=== PATIENT | female | born 1950 | race Caucasian/White ===

== ENCOUNTER 2018-11-25 16:56 | Inpatient (IN) | payer MEDICARE, MEDICAID ==
[~2018-11-25] VITALS: Ht 157.5 cm; Wt 47.6 kg
[~2018-11-25 16:56] MED LIST: APIX5TAB PO; ASPI-496 PO; CARV25TA12 PO; CLON0.2T PO; CLON0.3T4 PO; DIGO125T PO; DOXY100T PO; FERR324T5 PO; INSU100V5 SQ-INSULIN; LISI-170 PO; LORA-247 PO; METO25TA35 PO; OMEP20TA62 PO; PRED10TA PO; SPIR25TA PO; TIOT18CA INH
[2018-11-25] MEDS ORDERED: SIMV20TA3 PO (17:18)
--- NOTE | 2018-11-25 17:30 | NUR ---
pt JANNYSailaja from [facility] for treatment of NSTEMI diagnosed at that facility, report received from EMS. pt states she has intermittent shortness of breath that is chronic but worse this am. pt also reports transient chest pain that occurred this am, but has since resolved. 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 records indicate pt's troponin 0.08 at 1405. EKG taken on arrival, all monitors in place, pt is NSR on potline monitor with no ectopy. call light in reach. pt wearing oxygen at 3L/min, this is her baseline d/t hx COPD. call light in reach. awaiting MD and orders.
[2018-11-25] MEDS ORDERED: PROMETHAZINE 25 MG/ML, 1ML ONE (17:46)
[2018-11-25] MEDS ORDERED: DICYCLOMINE 10 MG/ML, 2ML ONE (17:46)
[2018-11-25] MEDS ORDERED: ONDANSETRON ODT 4 MG ONE (17:46)
--- NOTE | 2018-11-25 18:15 | NUR ---
REPORT TO TASK FIDE LEYVA.
[2018-11-25 18:31] LABS: BASOPHILS # (AUTO) 0.02 x10^3/uL (0-0.1); BASOPHILS % (AUTO) 0 % (0-1); EOSINOPHILS # (AUTO) 0.12 x10^3/uL (0-0.4); EOSINOPHILS % (AUTO) 1 % (1-7); LYMPHOCYTES # (AUTO) 1.71 x10^3/uL (1-3.4); LYMPHOCYTES % (AUTO) 18 % (22-44); MD NO; MEAN CORPUSCULAR HEMOGLOBIN 27.9 pg (27.0-34.8); MEAN CORPUSCULAR VOLUME 84.6 fL (80-100); MEAN PLATELET VOLUME 9.9 fL (7.4-10.4); MONOCYTES # (AUTO) 0.61 x10^3/uL (0.2-0.8); MONOCYTES % (AUTO) 6 % (2-9); NEUTROPHILS # (AUTO) 7.13 x10^3/uL (1.8-6.8); NEUTROPHILS % (AUTO) 74 % (42-75); PLATELET COUNT 218 x10^3/uL (130-400); RED BLOOD COUNT 3.92 x10^6/uL (3.82-5.3); RED CELL DISTRIBUTION WIDTH 17.5 % (9.6-15.2)
[2018-11-25 18:34] LABS: ALBUMIN 3.7 g/dL (3.4-5.0); ANION GAP 6 mmol/L (5-15); CALCIUM 9.1 mg/dL (8.5-10.1); CHLORIDE 99 mmol/L (98-107)
--- NOTE | 2018-11-25 18:37 | NUR ---
TASK RN: PT SITTING UP IN [place]ID[place], NAD NOTED. RR WNL; PT SPEAKING IN FULL SENTENCES WO DIFFICULTY. SPO2 >90% ON BASELINE O2, 3L BY NC. PWD. PT DENIES CP/SOB BP/SPO2/ECG MONITORING IN PLACE. NSR ON MONITOR W/ ST DEPRESSION NOTED. FAMILY PRESENT. DISPO REQUESTED FROM [facility]P
[2018-11-25 18:39] LABS: CREATININE 0.98 mg/dL (0.55-1.02); TROPONIN I 0.078 ng/mL (0.000-0.045)
[2018-11-25] MEDS ORDERED: POTASSIUM CHLORIDE 20 MEQ TAB.ER.PRT ONE (18:48)
--- NOTE | 2018-11-25 18:57 | NUR ---
REPORT RECEIVED FROM FIDE LEYVA.
--- NOTE | 2018-11-25 19:00 | NUR ---
EVENS FIERRO AT BEDSIDE TO ADMIT PT. INFORMED THAT PER [facility] RECORDS, PT RECEIVED LOVENOX 80 MG AT 1400 TODAY. INFORMED PT ALSO TAKES ELIQUIS AT HOME. PT CONVERSING WITH EVENS FIERRO, ALL MONITORS IN PLACE, CECILIA AT THIS TIME.
[2018-11-25] MEDS ORDERED: ALBUTEROL/IPRATROPIUM 2.5MG/0.5MG, 3 ML ONE ×2 (19:16→19:35)
--- NOTE | 2018-11-25 20:06 | NUR ---
REPORT GIVEN TO FIDE TOPETE, PT TRANSPORTED TO ROOM 522-1, PT A&O, RESPS EVEN AND UNLABORED, CRISN AT TRANSPORT. FAMILY WITH PT AT TRANSPORT.
[2018-11-25] MEDS ORDERED: NITROGLYCERIN OINT 2%, 1GM TP SCH (20:30)
[2018-11-25] MEDS ORDERED: NITROGLYCERIN 0.4 MG/SPRAY SL PRN (20:30)
[2018-11-25] MEDS ORDERED: ONDANSETRON 2MG/ML, 2ML IVPush PRN (20:30)
[2018-11-25 20:31] VITALS: BP 159/65
[2018-11-25] MEDS ORDERED: HEPARIN 5,000 UNITS/ML, 1ML IV ONE (21:00)
[2018-11-25] MEDS ORDERED: HEPARIN 25,000 UNITS/500ML PMX 500 ML IV PRN (21:00)
[2018-11-25] MEDS ORDERED: HEPARIN 5,000 UNITS/ML, 1ML IV PRN (21:00)
[2018-11-25] MEDS ORDERED: IPRATROPIUM 0.5 MG/2.5 ML INHA NPPB SCH (21:00)
[2018-11-25 21:38] LABS: TROPONIN I 0.078 ng/mL (0.000-0.045)
[2018-11-25 21:47] LABS: HEMOGLOBIN A1C 9.1 % (4.2-6.3)
[2018-11-25] MEDS ORDERED: ALBUTEROL/IPRATROPIUM 2.5MG/0.5MG, 3 ML NPPB PRN (22:00)
[2018-11-25] MEDS: LISINOPRIL 20 MG TABLET PO SCH (22:37)
[2018-11-25] MEDS: FERROUS SULFATE 325 MG TABLET PO SCH (22:37)
[2018-11-25] MEDS: ATORVASTATIN 80 MG TABLET PO SCH (22:38)
[2018-11-25] MEDS: CARVEDILOL 25 MG TABLET PO SCH (22:38)
[2018-11-25] MEDS: ALBUTEROL/IPRATROPIUM 2.5MG/0.5MG, 3 ML NPPB SCH (23:00)
[2018-11-25] MEDS ORDERED: NITROGLYCERIN OINT 2%, 1GM TP PRN (23:30)
[2018-11-26 01:36] LABS: ANION GAP 7 mmol/L (5-15); CALCIUM 8.6 mg/dL (8.5-10.1); CHLORIDE 101 mmol/L (98-107); CHOLESTEROL, TOTAL 172 mg/dL (140-239); TRIGLYCERIDES 329 mg/dL (50-200); VLDL CHOLESTEROL 66 mg/dL (0-25)
[2018-11-26 01:37] LABS: CHOL/HDL RATIO 3.4; HDL CHOL % 29 % (28-40); HDL CHOLESTEROL (DIRECT) 50 mg/dL (40-60); LDL CHOLESTEROL,CALCULATED 56 mg/dL (54-169); LDL/HDL RATIO 1.1 (0.5-3.0)
[2018-11-26 01:40] LABS: TROPONIN I 0.088 ng/mL (0.000-0.045)
[2018-11-26 01:45] VITALS: BP 106/61
[2018-11-26] MEDS ORDERED: HEPARIN 25,000 UNITS/500ML PMX 500 ML IV PRN (02:00)
[2018-11-26] MEDS ORDERED: HEPARIN 5,000 UNITS/ML, 1ML IV PRN (02:00)
[2018-11-26] MEDS ORDERED: HEPARIN 5,000 UNITS/ML, 1ML IV ONE (02:00)
[2018-11-26] MEDS: ALBUTEROL/IPRATROPIUM 2.5MG/0.5MG, 3 ML NPPB SCH ×6 (02:00→22:15)
[2018-11-26 06:55] LABS: BASOPHILS # (AUTO) 0.05 x10^3/uL (0-0.1); BASOPHILS % (AUTO) 1 % (0-1); EOSINOPHILS # (AUTO) 0.28 x10^3/uL (0-0.4); EOSINOPHILS % (AUTO) 4 % (1-7); LYMPHOCYTES % (AUTO) 23 % (22-44); MD NO; MEAN CORPUSCULAR HEMOGLOBIN 28.1 pg (27.0-34.8); MEAN CORPUSCULAR HGB CONC 33.7 g/dL (32.4-35.8); MEAN CORPUSCULAR VOLUME 83.4 fL (80-100); MEAN PLATELET VOLUME 10.1 fL (7.4-10.4); MONOCYTES # (AUTO) 0.58 x10^3/uL (0.2-0.8); MONOCYTES % (AUTO) 9 % (2-9); NEUTROPHILS # (AUTO) 4.18 x10^3/uL (1.8-6.8); NEUTROPHILS % (AUTO) 63 % (42-75); PLATELET COUNT 173 x10^3/uL (130-400); RED BLOOD COUNT 3.62 x10^6/uL (3.82-5.3); RED CELL DISTRIBUTION WIDTH 17.8 % (9.6-15.2)
[2018-11-26] MEDS: BUDESONIDE 0.5 MG/2 ML INHA NPPB SCH ×2 (07:20→22:15)
[2018-11-26 07:30] VITALS: BP 125/72
[2018-11-26] MEDS: CARVEDILOL 25 MG TABLET PO SCH ×2 (08:48→18:00)
[2018-11-26] MEDS: DIGOXIN 0.125 MG TABLET PO SCH (08:48)
[2018-11-26] MEDS: SPIRONOLACTONE 25 MG TABLET PO SCH (08:48)
[2018-11-26] MEDS: LISINOPRIL 20 MG TABLET PO SCH ×2 (08:48→19:53)
[2018-11-26] MEDS: FERROUS SULFATE 325 MG TABLET PO SCH ×2 (08:48→19:52)
[2018-11-26] MEDS: ASPIRIN 81 MG TABLET EC PO SCH (08:48)
[2018-11-26] MEDS: LORATADINE 10 MG TABLET PO SCH (08:49)
[2018-11-26] MEDS ORDERED: TEMPLATE NON-FORMULARY MED. (Tiotropium Bromide** (Spiriva**) 18 MCG) INH SCH (09:00)
[2018-11-26] MEDS ORDERED: POTASSIUM CHLORIDE 40 MEQ in SODIUM CHLORIDE 0.9% 500 ML IV ONE (10:00)
[2018-11-26] MEDS: PANTOPROZOLE 40MG TABLET PO SCH (12:00)
[2018-11-26] MEDS: methylPREDNISolone SOD SUCC 125 MG/2 ML IVPush SCH ×2 (12:30→18:02)
[2018-11-26] MEDS: FUROSEMIDE 20 MG TABLET PO SCH (12:30)
[2018-11-26 14:45] VITALS: BP 106/68
[2018-11-26] MEDS: ATORVASTATIN 80 MG TABLET PO SCH (19:52)
[2018-11-26 20:00] VITALS: BP 147/70
[2018-11-27] MEDS: methylPREDNISolone SOD SUCC 125 MG/2 ML IVPush SCH ×4 (00:35→17:17)
[2018-11-27 01:09] VITALS: BP 145/76
[2018-11-27] MEDS: ALBUTEROL/IPRATROPIUM 2.5MG/0.5MG, 3 ML NPPB SCH ×6 (02:13→22:37)
[2018-11-27] MEDS: CARVEDILOL 25 MG TABLET PO SCH ×2 (05:12→17:17)
[2018-11-27] MEDS: PANTOPROZOLE 40MG TABLET PO SCH (05:12)
[2018-11-27 06:47] LABS: ANION GAP 9 mmol/L (5-15); CALCIUM 8.8 mg/dL (8.5-10.1); CHLORIDE 102 mmol/L (98-107); CREATININE 0.92 mg/dL (0.55-1.02)
[2018-11-27] MEDS: BUDESONIDE 0.5 MG/2 ML INHA NPPB SCH ×2 (07:28→18:59)
[2018-11-27] MEDS: ASPIRIN 81 MG TABLET EC PO SCH (08:34)
[2018-11-27] MEDS: FERROUS SULFATE 325 MG TABLET PO SCH ×2 (08:34→20:08)
[2018-11-27] MEDS: DIGOXIN 0.125 MG TABLET PO SCH (08:34)
[2018-11-27] MEDS: FUROSEMIDE 20 MG TABLET PO SCH (08:35)
[2018-11-27] MEDS: SPIRONOLACTONE 25 MG TABLET PO SCH (08:35)
[2018-11-27] MEDS: LISINOPRIL 20 MG TABLET PO SCH ×2 (08:35→20:08)
[2018-11-27 08:37] VITALS: BP 144/74
[2018-11-27] MEDS: LORATADINE 10 MG TABLET PO SCH (08:40)
[2018-11-27 09:00] VITALS: BP 134/75
[2018-11-27 13:50] VITALS: BP 135/72
[2018-11-27] MEDS: ATORVASTATIN 80 MG TABLET PO SCH (20:08)
[2018-11-27 20:46] VITALS: BP 175/77
[2018-11-27] MEDS ORDERED: CALCIUM CARBONATE 500 MG TAB.CHEW ONE (22:22)
[2018-11-27] MEDS: CALCIUM CARBONATE 500 MG TAB.CHEW PO PRN (22:24)
[2018-11-28] VITALS (15 sets, daily range): BP systolic 154–206; BP diastolic 67–128
[2018-11-28] MEDS: methylPREDNISolone SOD SUCC 125 MG/2 ML IVPush SCH ×4 (00:32→20:17)
[2018-11-28] MEDS: ENALAPRILAT 1.25 MG/ML, 2ML IVPush PRN ×3 (01:36→23:55)
[2018-11-28] MEDS: ALBUTEROL/IPRATROPIUM 2.5MG/0.5MG, 3 ML NPPB SCH ×7 (02:13→23:58)
[2018-11-28] MEDS ORDERED: hydrALAzine 20 MG/ML, 1ML IV ONE (03:30)
[2018-11-28] MEDS: NITROGLYCERIN 0.4 MG BOTTLE (25 TABS) SL PRN (04:16)
[2018-11-28] MEDS: PANTOPROZOLE 40MG TABLET PO SCH (06:02)
[2018-11-28] MEDS: CARVEDILOL 25 MG TABLET PO SCH ×2 (06:03→16:57)
[2018-11-28] MEDS: BUDESONIDE 0.5 MG/2 ML INHA NPPB SCH ×2 (07:55→19:10)
[2018-11-28] MEDS: FERROUS SULFATE 325 MG TABLET PO SCH ×2 (08:45→20:19)
[2018-11-28] MEDS: LISINOPRIL 20 MG TABLET PO SCH ×2 (08:45→20:18)
[2018-11-28] MEDS: CALCIUM CARBONATE 500 MG TAB.CHEW PO PRN ×2 (08:45→20:19)
[2018-11-28] MEDS: DIGOXIN 0.125 MG TABLET PO SCH (08:45)
[2018-11-28] MEDS: FUROSEMIDE 20 MG TABLET PO SCH ×2 (08:45→20:18)
[2018-11-28] MEDS: SPIRONOLACTONE 25 MG TABLET PO SCH (08:46)
[2018-11-28] MEDS: ASPIRIN 81 MG TABLET EC PO SCH (08:46)
[2018-11-28] MEDS: LORATADINE 10 MG TABLET PO SCH (08:46)
[2018-11-28] MEDS: AMLODIPINE 5 MG TABLET PO SCH ×2 (11:34→20:19)
[2018-11-28] MEDS: APIXABAN 5 MG TABLET PO SCH (20:17)
[2018-11-28] MEDS: ATORVASTATIN 80 MG TABLET PO SCH (20:18)
[2018-11-28] MEDS ORDERED: DIPHENHYDRAMINE 25 MG CAPSULE ONE (22:53)
[2018-11-28] MEDS ORDERED: DIPHENHYDRAMINE 25 MG CAPSULE PO ONE (23:00)
[2018-11-28] MEDS ORDERED: ENALAPRIL 20MG TABLET ONE (23:19)
[2018-11-28] MEDS ORDERED: ENALAPRIL 10 MG TABLET PO ONE (23:30)
[2018-11-29] VITALS (7 sets, daily range): BP systolic 153–183; BP diastolic 74–102
[2018-11-29] MEDS: ENALAPRILAT 1.25 MG/ML, 2ML IVPush PRN ×2 (00:12→14:23)
[2018-11-29] MEDS: NITROGLYCERIN 0.4 MG BOTTLE (25 TABS) SL PRN (00:17)
[2018-11-29] MEDS: methylPREDNISolone SOD SUCC 125 MG/2 ML IVPush SCH ×4 (01:14→18:15)
[2018-11-29] MEDS: ALBUTEROL/IPRATROPIUM 2.5MG/0.5MG, 3 ML NPPB SCH ×6 (03:00→23:09)
[2018-11-29] MEDS: CARVEDILOL 25 MG TABLET PO SCH ×2 (06:01→18:15)
[2018-11-29] MEDS: PANTOPROZOLE 40MG TABLET PO SCH (06:01)
[2018-11-29] MEDS: CALCIUM CARBONATE 500 MG TAB.CHEW PO PRN (06:07)
[2018-11-29] MEDS: BUDESONIDE 0.5 MG/2 ML INHA NPPB SCH ×2 (06:29→18:55)
[2018-11-29 08:00] LABS: ALBUMIN 3.7 g/dL (3.4-5.0); ANION GAP 9 mmol/L (5-15); CALCIUM 9.3 mg/dL (8.5-10.1); CHLORIDE 102 mmol/L (98-107)
[2018-11-29 08:04] LABS: CREATININE 1.29 mg/dL (0.55-1.02)
[2018-11-29 08:39] LABS: BASOPHILS # (AUTO) 0.04 x10^3/uL (0-0.1); BASOPHILS % (AUTO) 0 % (0-1); EOSINOPHILS % (AUTO) 0 % (1-7); LYMPHOCYTES # (AUTO) 0.57 x10^3/uL (1-3.4); LYMPHOCYTES % (AUTO) 3 % (22-44); MD SCAN; MEAN CORPUSCULAR HEMOGLOBIN 27.3 pg (27.0-34.8); MEAN CORPUSCULAR HGB CONC 32.7 g/dL (32.4-35.8); MEAN CORPUSCULAR VOLUME 83.5 fL (80-100); MEAN PLATELET VOLUME 10.1 fL (7.4-10.4); MONOCYTES # (AUTO) 0.41 x10^3/uL (0.2-0.8); MONOCYTES % (AUTO) 2 % (2-9); NEUTROPHILS # (AUTO) 17.82 x10^3/uL (1.8-6.8); NEUTROPHILS % (AUTO) 95 % (42-75); PLATELET COUNT 267 x10^3/uL (130-400); RED BLOOD COUNT 4.63 x10^6/uL (3.82-5.3); RED CELL DISTRIBUTION WIDTH 17.7 % (9.6-15.2)
[2018-11-29] MEDS: ASPIRIN 81 MG TABLET EC PO SCH (09:37)
[2018-11-29] MEDS: SPIRONOLACTONE 25 MG TABLET PO SCH (09:37)
[2018-11-29] MEDS: FERROUS SULFATE 325 MG TABLET PO SCH ×2 (09:37→21:03)
[2018-11-29] MEDS: LORATADINE 10 MG TABLET PO SCH (09:37)
[2018-11-29] MEDS: AMLODIPINE 5 MG TABLET PO SCH ×2 (09:37→21:03)
[2018-11-29] MEDS: APIXABAN 5 MG TABLET PO SCH ×2 (09:37→21:03)
[2018-11-29] MEDS: DIGOXIN 0.125 MG TABLET PO SCH (09:37)
[2018-11-29] MEDS: LISINOPRIL 20 MG TABLET PO SCH ×2 (09:37→21:03)
[2018-11-29] MEDS: INSULIN LISPRO 100 UNITS/ML, PEN SQ-INSULIN SCH ×4 (10:26→21:03)
[2018-11-29] MEDS: FUROSEMIDE 20 MG TABLET PO SCH (10:26)
[2018-11-29] MEDS ORDERED: INSULIN LISPRO 100 UNITS/ML, PEN SQ-INSULIN SCH (11:00)
[2018-11-29] MEDS: INSULIN GLARGINE 100 UNITS/ML, PEN SQ-INSULIN SCH (18:16)
[2018-11-29] MEDS: ATORVASTATIN 80 MG TABLET PO SCH (21:03)
[2018-11-30 01:59] VITALS: BP 164/90
[2018-11-30] MEDS: methylPREDNISolone SOD SUCC 125 MG/2 ML IVPush SCH ×2 (02:01→07:55)
[2018-11-30] MEDS: ALBUTEROL/IPRATROPIUM 2.5MG/0.5MG, 3 ML NPPB SCH ×2 (03:02→06:45)
[2018-11-30 06:21] VITALS: BP 170/97
[2018-11-30] MEDS: CARVEDILOL 25 MG TABLET PO SCH (06:21)
[2018-11-30] MEDS: PANTOPROZOLE 40MG TABLET PO SCH (06:21)
[2018-11-30] MEDS: BUDESONIDE 0.5 MG/2 ML INHA NPPB SCH (06:45)
[2018-11-30] MEDS: INSULIN GLARGINE 100 UNITS/ML, PEN SQ-INSULIN SCH (07:56)
[2018-11-30] MEDS: INSULIN LISPRO 100 UNITS/ML, PEN SQ-INSULIN SCH (07:56)
[2018-11-30 07:59] VITALS: BP 141/84
[2018-11-30] MEDS ORDERED: PANT40TA5 PO (08:59)
[2018-11-30] MEDS: LISINOPRIL 20 MG TABLET PO SCH (08:59)
[2018-11-30] MEDS ORDERED: AMLO-150 PO (08:59)
[2018-11-30] MEDS ORDERED: FURO20TA3 PO (08:59)
[2018-11-30] MEDS: SPIRONOLACTONE 25 MG TABLET PO SCH (08:59)
[2018-11-30] MEDS ORDERED: GLIP5TAB10 PO (08:59)
[2018-11-30] MEDS: ASPIRIN 81 MG TABLET EC PO SCH (08:59)
[2018-11-30] MEDS: LORATADINE 10 MG TABLET PO SCH (09:00)
[2018-11-30] MEDS ORDERED: FUROSEMIDE 20 MG TABLET PO SCH (09:00)
[2018-11-30] MEDS: APIXABAN 5 MG TABLET PO SCH (09:01)
[2018-11-30] MEDS: DIGOXIN 0.125 MG TABLET PO SCH (09:01)
[2018-11-30] MEDS: FERROUS SULFATE 325 MG TABLET PO SCH (09:01)
[2018-11-30] MEDS: AMLODIPINE 5 MG TABLET PO SCH (09:01)
[2018-11-30] MEDS ORDERED: PRED10TA PO (09:02)
[2018-11-30] MEDS ORDERED: BUDE10.2 INH (09:03)
== END 2018-11-30 10:50 | disposition home health service (06) | DRG 280 ==
LOC: ED 18:43 → EDIP 18:48 → ED 19:46 → 5SO 20:25 → 4EST 11-28 00:54 → DCLOUNGE 11-30 10:34
PROVIDERS: ADMIT Family Medicine; ATTEND Family Medicine
DX: I21.4 Non-ST elevation (NSTEMI) myocardial infarction (principal); J96.20 Acute and chronic respiratory failure, unspecified whether with hypoxia or hypercapnia; J44.1 Chronic obstructive pulmonary disease with (acute) exacerbation; D68.69 Other thrombophilia; E46 Unspecified protein-calorie malnutrition; I42.9 Cardiomyopathy, unspecified; I50.22 Chronic systolic (congestive) heart failure; Z68.1 Body mass index [BMI] 19.9 or less, adult; D64.9 Anemia, unspecified; E11.9 Type 2 diabetes mellitus without complications; G47.33 Obstructive sleep apnea (adult) (pediatric); I11.0 Hypertensive heart disease with heart failure; I48.2 Chronic atrial fibrillation; T38.0X5A Adverse effect of glucocorticoids and synthetic analogues, initial encounter; Z79.01 Long term (current) use of anticoagulants; Z79.84 Long term (current) use of oral hypoglycemic drugs; Z87.891 Personal history of nicotine dependence; Z87.01 Personal history of pneumonia (recurrent); Y92.89 Other specified places as the place of occurrence of the external cause
CPT/HCPCS: 36415; 71045; 80048; 80061; 82040; 82962; 83036; 83735; 84484; 85025; 85520; 93005; 94640; 99285; G0378; J3480; J7620; J7626; J0360; J1815; J2930; J7040; J7512